=== PATIENT | male | born 1995 | race Hispanic/Latino ===

== ENCOUNTER 2020-09-14 20:26 | Emergency (ER) | payer SELFPAY ==
[~2020-09-14] VITALS: Ht 165.1 cm; Wt 80.0 kg
[2020-09-14] MEDS ORDERED: OTC COUGH MED (20:53)
[2020-09-14] MEDS ORDERED: DEXAMETHASON6 MG PO (21:14)
[2020-09-14] MEDS ORDERED: ZPAK PO (21:14)
[2020-09-14 21:50] VITALS: BP 134/74
== END 2020-09-14 22:07 | disposition home or self-care (01) | DRG 179 ==
LOC: ED 20:26
DX: U07.1 COVID-19 (principal); M79.10 Myalgia, unspecified site